=== PATIENT | female | born 1935 | race Hispanic/Latino ===

== ENCOUNTER 2025-09-24 08:13 | Day surgery (SDC) | payer MEDICARE ==
[2025-09-24] VITALS (9 sets, daily range): BP systolic 106–178; BP diastolic 50–62; PULSE 56–70; RESP 16–18; TEMP 97.4–97.9
[~2025-09-24] VITALS: Ht 147.3 cm; Wt 62.6 kg
[~2025-09-24 08:13] MED LIST: AMLO-258 PO; AREDS PO; BUDE10.26 IH; CHOL200013 PO; DOCU100C33 PO; ESOM40CA66 PO; FAMO40TA7 PO; LEVA0.6333 IH; LINA72CA PO; LOSA100T59 PO; MEMA14CA5 PO; MIRA50TA PO; MONT-39 PO; OMEP40CA21 PO; SODIUM CHL 3% NEB; SUCR1TAB2 PO; [UNRECOGNIZED DRUG - CODE] PO
[2025-09-24] MEDS ORDERED: CARV6.25 PO (08:59)
[2025-09-24] MEDS: 0.9%NACL 1000ML 1,000 ML IV ONE (09:12)
== END 2025-09-24 11:59 | disposition home or self-care (01) ==
LOC: DAH 08:13 → ENDO 08:13
PROVIDERS: ATTEND Internal Medicine Gastroenterology
DX: R14.0 Abdominal distension (gaseous) (principal); K31.7 Polyp of stomach and duodenum; K21.9 Gastro-esophageal reflux disease without esophagitis; K44.9 Diaphragmatic hernia without obstruction or gangrene; K29.70 Gastritis, unspecified, without bleeding; I10 Essential (primary) hypertension; M19.90 Unspecified osteoarthritis, unspecified site; Z96.659 Presence of unspecified artificial knee joint; Z90.49 Acquired absence of other specified parts of digestive tract; Z98.49 Cataract extraction status, unspecified eye; Q44.6 Cystic disease of liver; K57.30 Diverticulosis of large intestine without perforation or abscess without bleeding; N39.0 Urinary tract infection, site not specified; Z79.899 Other long term (current) drug therapy
CPT/HCPCS: 43239; J7030 ×2; J2704; A4620; A4215 ×2; A4223; A4657; A7002; A4222; A4221; A4663; A4606; J3490